=== PATIENT | male | born 1965 | race African-American/Black ===

== ENCOUNTER 2022-11-25 13:51 | Observation (INO) | payer BC, OTHER ==
[~2022-11-25 13:51] MED LIST: Iopamidol 370 76% 100 ML VIAL ONE
[2022-11-25 15:03] LABS: #Basophils 0.1 10x3/uL (0.0-0.2); #Eosinphils 0.2 10x3/uL (0.0-0.5); #Monocytes 0.8 10x3/uL (0.0-1.1); #Neutrophils 5.5 10x3/uL (1.5-8.4); %Basophils 0.6 % (0.0-2.0); %Eosinophils 2.6 % (0.0-6.0); %Lymphocytes 25.5 % (18.0-47.0); %Monocytes 9.1 % (0.0-10.0); %Neutrophils 61.6 % (40.0-75.0); Hematocrit 50.3 % (38.8-50.0); Hemoglobin 16.3 g/dL (13.5-17.5); Mean Corpuscular HGB CONC 32.4 g/dL (32.0-36.0); Mean Corpuscular Hemoglobin 28.1 pg (27.0-33.0); Mean Corpuscular Volume 86.6 fl (81.2-95.1); Mean Platelet Volume 10.2 fl (7.4-10.4); Platelet Count 208 10x3/uL (150-450); RBC Distribution Width 14.3 % (11.5-14.5); Red Blood Cell (RBC) Count 5.81 10x6/uL (4.32-5.72); White Blood Cell (WBC) Count 8.9 10x3/uL (3.5-10.5)
[2022-11-25 15:16] LABS: ALT (SGPT) 36 U/L (8-55); AST (SGOT) 42 U/L (5-34); Albumin 4.2 g/dL (3.5-5.0); Alkaline Phosphatase 55 U/L (40-110); Anion Gap 12 mmol/L (10-20); BUN (Urea Nitrogen) 9 mg/dL (8.4-25.7); Bilirubin, Total 0.9 mg/dL (0.2-1.2); Calc. Creatinine Clearance 0 mL/min (70-130); Calcium 8.8 mg/dL (7.8-10.44); Carbon Dioxide 28 mmol/L (22-29); Chloride 102 mmol/L (98-107); Estimated GFR 72; Globulin 2.5 g/dL (2.4-3.5); Glucose 128 mg/dL (70-105); Potassium 3.9 mmol/L (3.5-5.1); Protein, Total 6.7 g/dL (6.0-8.3); Sodium 138 mmol/L (136-145)
[2022-11-25 15:20] LABS: Troponin I 0.122 ng/mL (< 0.028)
[2022-11-25] MEDS ORDERED: Dextrose 50% Abboject 50 ML SYRINGE SLOW IVP PRN (16:24)
[2022-11-25] MEDS ORDERED: Glucagon 1 MG/ML KIT IM PRN (16:24)
[2022-11-25] MEDS ORDERED: Dextrose 5% in Water 1,000 ML IV PRN (16:24)
[2022-11-25] MEDS ORDERED: Acetaminophen 325 MG TAB PO PRN (16:24)
[2022-11-25] MEDS ORDERED: Ondansetron PF 4 MG/2 ML Vial IVP PRN (16:24)
[2022-11-25] MEDS ORDERED: HumaLOG 300 UNITS/3 ML VIAL SC PRN (16:24)
[2022-11-25 17:26] LABS: Troponin I 0.129 ng/mL (< 0.028)
[2022-11-25] MEDS ORDERED: Losartan 25 MG TAB PO SCH (18:30)
[2022-11-25] MEDS ORDERED: Azithromycin 500 MG in Sodium Chloride 0.9% 250 ML 250 ML IVPB SCH (18:30)
[2022-11-25] MEDS ORDERED: Furosemide 40 MG/4 ML VIAL SLOW IVP SCH (18:30)
[2022-11-25 18:32] VITALS: BMI 35.2
[2022-11-25] MEDS ORDERED: cefTRIAXone\\ROCEPHIN 1 GM in Sodium Chloride 0.9% 100 ML IVPB SCH (20:00)
[2022-11-25 20:17] LABS: Troponin I 0.128 ng/mL (< 0.028)
[2022-11-25 23:23] LABS: Amphetamine Not Detected (NotDetected); Barbiturates Screen Not Detected (NotDetected); Benzodiazepine Screen Not Detected (NotDetected); Cocaine Metabolite Screen Not Detected (NotDetected); Methadone Not Detected (NotDetected); Methamphetamine Not Detected (NotDetected); Opiate Screen Not Detected (NotDetected); Oxycodone Screen Not Detected (NotDetected); Phencyclidine (PCP) Not Detected (NotDetected); THC/Cannabinoid Screen Not Detected (NotDetected); Tricyclic Screen Not Detected (NotDetected)
[2022-11-26 00:25] LABS: SARS-CoV-2 NAA Rapid Test Not Detected (NotDetected)
[2022-11-26 04:07] LABS: #Basophils 0.1 10x3/uL (0.0-0.2); #Eosinphils 0.3 10x3/uL (0.0-0.5); #Monocytes 1.1 10x3/uL (0.0-1.1); #Neutrophils 4.7 10x3/uL (1.5-8.4); %Basophils 0.7 % (0.0-2.0); %Eosinophils 3.4 % (0.0-6.0); %Monocytes 12.1 % (0.0-10.0); %Neutrophils 53.3 % (40.0-75.0); Hematocrit 49.7 % (38.8-50.0); Hemoglobin 16.1 g/dL (13.5-17.5); Mean Corpuscular HGB CONC 32.4 g/dL (32.0-36.0); Mean Corpuscular Hemoglobin 28.4 pg (27.0-33.0); Mean Corpuscular Volume 87.7 fl (81.2-95.1); Mean Platelet Volume 10.5 fl (7.4-10.4); Platelet Count 224 10x3/uL (150-450); RBC Distribution Width 14.6 % (11.5-14.5); Red Blood Cell (RBC) Count 5.67 10x6/uL (4.32-5.72); White Blood Cell (WBC) Count 8.8 10x3/uL (3.5-10.5)
[2022-11-26 04:18] LABS: Anion Gap 15 mmol/L (10-20); BUN (Urea Nitrogen) 8 mg/dL (8.4-25.7); Calc. Creatinine Clearance 104 mL/min (70-130); Calcium 8.7 mg/dL (7.8-10.44); Carbon Dioxide 24 mmol/L (22-29); Chloride 104 mmol/L (98-107); Estimated GFR 75; Glucose 100 mg/dL (70-105); Potassium 3.6 mmol/L (3.5-5.1); Sodium 139 mmol/L (136-145)
[2022-11-26] MEDS ORDERED: Ascorbic Acid 500 mg Chewable Tablet PO SCH (09:00)
[2022-11-26] MEDS ORDERED: Hydrochlorothiazide 25 MG TAB PO SCH (09:00)
[2022-11-26] MEDS ORDERED: Thyroid 30 MG TAB PO SCH (09:00)
[2022-11-26] MEDS ORDERED: Cholecalciferol 1,000 UNITS (25 MCG) TAB PO SCH (09:00)
[2022-11-26 13:38] LABS: Hemoglobin A1c 4.8 % (4.0-6.0)
[2022-11-26 16:54] VITALS: BP 168/94; TEMP 97.7
[2022-11-26] MEDS ORDERED: Losartan Potassium 50 MG TAB PO SCH (21:00)
[2022-11-26] MEDS ORDERED: Atorvastatin Calcium 10 MG TAB PO SCH (21:00)
== END 2022-11-26 17:55 | disposition home or self-care (01) ==
LOC: CSHERS 13:51 → CSHTELE 15:48
PROVIDERS: ADMIT Family Medicine; ATTEND Hospitalist
DX: I11.9 Hypertensive heart disease without heart failure (principal); E11.9 Type 2 diabetes mellitus without complications; J18.9 Pneumonia, unspecified organism; J81.1 Chronic pulmonary edema; Z79.84 Long term (current) use of oral hypoglycemic drugs; R77.8 Other specified abnormalities of plasma proteins; Z79.4 Long term (current) use of insulin; Z90.89 Acquired absence of other organs; Z79.82 Long term (current) use of aspirin; Z79.899 Other long term (current) drug therapy
CPT/HCPCS: 36415; 36416; 71045; 71275; 80048; 80053; 80306; 83036; 83880; 84484; 85025; 87040; 93005; 93306; 94760; 96374; 96375; G0378; J0456; J0696; J1815; J1940; J3490; J7050; Q9967; U0002

== ENCOUNTER 2024-04-12 19:36 | Emergency (ER) | payer BC, SELFPAY ==
[2024-04-12] MEDS ORDERED: Ketorolac Tromethamine 30 MG (1 mL) VIAL ONE (20:02)
[2024-04-12] MEDS ORDERED: Acetaminophen 500 MG TAB ONE (20:03)
== END 2024-04-12 20:30 | disposition home or self-care (01) ==
LOC: CSHERS 19:36
DX: R20.2 Paresthesia of skin (principal); I10 Essential (primary) hypertension; E11.9 Type 2 diabetes mellitus without complications; Z55.0 Illiteracy and low-level literacy
CPT/HCPCS: 96372; 99283; J1885

== ENCOUNTER 2024-05-08 20:34 | Emergency (ER) | payer SELFPAY ==
[2024-05-08] MEDS ORDERED: Ketorolac Tromethamine 30 MG (1 mL) VIAL ONE (22:00)
[2024-05-08 22:30] LABS: #Basophils 0.05 10x3/uL (0.0-0.2); #Eosinophils 0.14 10x3/uL (0.0-0.5); #Monocytes 0.86 10x3/uL (0.0-1.1); #Neutrophils 5.48 10x3/uL (1.5-8.4); %Basophils 0.5 % (0.0-2.0); %Eosinophils 1.5 % (0.0-6.0); %Lymphocytes 28.1 % (18.0-47.0); %Monocytes 9.4 % (0.0-10.0); %Neutrophils 60.2 % (40.0-75.0); Hematocrit 41.7 % (38.8-50.0); Hemoglobin 14.1 g/dL (13.5-17.5); Mean Corpuscular HGB CONC 33.8 g/dL (32.0-36.0); Mean Corpuscular Hemoglobin 30.6 pg (27.0-33.0); Mean Corpuscular Volume 90.5 fL (81.2-95.1); Mean Platelet Volume 10.1 fL (7.4-10.4); Platelet Count 204 10x3/uL (150-450); RBC Distribution Width 12.5 % (11.5-14.5); Red Blood Cell (RBC) Count 4.61 10x6/uL (4.32-5.72); White Blood Cell (WBC) Count 9.12 10x3/uL (3.5-10.5)
[2024-05-08 22:51] LABS: ALT (SGPT) 27 U/L (Less than 45); AST (SGOT) 35 U/L (11-34); Albumin 4.4 g/dL (3.1-4.5); Alkaline Phosphatase 72 U/L (40-110); Anion Gap 14 mmol/L (10-20); BUN (Urea Nitrogen) 13 mg/dL (8.4-25.7); Bilirubin, Total 0.8 mg/dL (0.3-1.2); CK (CPK) 649 U/L (30-200); Calc. Creatinine Clearance 0 mL/min (70-130); Calcium 9.3 mg/dL (7.8-10.44); Carbon Dioxide 24 mmol/L (22-29); Chloride 106 mmol/L (98-107); Estimated GFR 92; Glucose 97 mg/dL (70-105); Potassium 3.5 mmol/L (3.5-5.1); Protein, Total 7.4 g/dL (6.0-8.3); Sodium 140 mmol/L (136-145)
== END 2024-05-09 00:39 | disposition home or self-care (01) ==
LOC: CSHERS 20:34
DX: M25.561 Pain in right knee (principal); E86.0 Dehydration; I10 Essential (primary) hypertension; E11.9 Type 2 diabetes mellitus without complications; Z79.899 Other long term (current) drug therapy
CPT/HCPCS: 80053; 82550; 83735; 85025; 86140; 96361; 96374; J1885